=== PATIENT | male | born 1975 | race Caucasian/White ===

== ENCOUNTER 2017-02-03 09:24 | Emergency (ER) | payer OTHER ==
[~2017-02-03] VITALS: Ht 177.8 cm; Wt 92.6 kg
[2017-02-03 09:26] VITALS: TEMP 36.7; Ht 177.8 cm; Wt 92.6 kg
[2017-02-03] MEDS ORDERED: SODIUM CHLORIDE 0.9% 1000ML 1,000 ML IV STA (09:42)
[2017-02-03] MEDS ORDERED: SODIUM CHLORIDE 0.9% 1000ML 1,000 ML IV ONE (09:42)
[2017-02-03] MEDS ORDERED: ALPR1TAB3 PO (09:46)
[2017-02-03] MEDS ORDERED: SRQ/100 PO (09:46)
[2017-02-03] MEDS ORDERED: BUPR-79 PO (09:46)
[2017-02-03] MEDS ORDERED: QUET1TAB90 PO (09:46)
--- NOTE | 2017-02-03 09:48 | EMERGENCY ROOM VISIT NOTE ---
History Report prepared by Nieves: Barbie Tran Under the Supervision of: Dr. Lawrence Dee M.D. First contact with patient: 09:31 Chief Complaint: SEIZURE Stated Complaint: POSS. SEIZURE Nursing Triage Summary: Pt was at work when he had a syncopal event. Coworkers witnessed event and said pt passed out and had seizure like activity. Pt does not remember event, no loss of bladder or bowel control, no hx of seizures. Pt presents feeling dizzy and lightheaded. History of Present Illness The patient is a 41 year old male who presents to the Emergency Room with complaints of sudden seizure like activity that occurred 25 minutes prior to arrival. The patient states that he was at work when he suddenly fell to the ground and became unconscious. He states that he was told that he suddenly dropped and experienced seizure like activity. The patient denies any seizure history and reports feeling fine this morning. 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 The patient states that he felt fine this morning. He reports dizziness with his symptoms and states that he was confused after the episode. The patient denies any head trauma or other injury. The patient states that two weeks ago he started on Xanax, Seroquel and Wellbutrin for his combat related PTSD. He reports medication compliance and denies taking any extra medications. The patient states that he did sleep rough last evening. He states that he is a smoker and drank approximately 4 beers last evening. The patient denies any recreational drug use. He denies any family history of seizures. The patient denies any thoughts of self-harm. He denies any headache, tongue bite, fever, chest pain, shortness of breath, abdominal pain, melena, hematochezia, or urinary or bowel incontinence. Source of History: patient Onset: 25 minutes prior to arrival Position: other (global) Quality: other (seizure like activity) Timing: other (sudden) Associated Symptoms: No fevers, No headache, No chest pain, No SOB, No abdominal pain, No melena, No hematochezia, No urinary symptoms Note: Associated Symptoms: dizziness, confusion Review of Systems See HPI for pertinent positives & negatives. A total of 10 systems reviewed and were otherwise negative. Past Medical & Surgical Medical Problems: (1) PTSD (post-traumatic stress disorder) Old medical records were reviewed. Nurse's notes were reviewed and I agree with. Social History Smoking Status: Current Every Day Smoker Alcohol Use: occasionally Drug Use: none Current/Historical Medications Scheduled Alprazolam (Xanax), 1 MG PO TID Bupropion (Wellbutrin Sr), 150 MG PO BID Prazosin Hcl (Prazosin), 4 MG PO HS Quetiapine Fumarate (Seroquel), 100 MG PO DIRECTED Quetiapine Fumarate (Seroquel), 600 MG PO QPM Allergies Coded Allergies: No Known Allergies (Unverified , 02/03/17) Physical Exam Vital Signs Date Time Temp Pulse Resp B/P (MAP) Pulse Ox O2 Delivery O2 Flow Rate FiO2 02/03/17 12:14 89 16 143/84 98 02/03/17 11:27 80 16 146/86 98 02/03/17 10:13 18 146/86 96 Room Air 02/03/17 09:26 36.7 99 18 138/88 95 Room Air Physical Exam General: Well developed well nourished non-ill appearing young male, in no acute distress, breathing comfortably on room air. Normal speech. [place] 15. HEENT: Normal cephalic atraumatic. Pupils are equal round and reactive to light. Extraocular movements are intact. Oropharynx is pink with moist mucous membranes. No swelling of the mouth lips or tongue. Neck: Supple with a midline trachea. No meningeal signs or stiffness, no JVD or bruits. No Stridor. Chest: Clear to auscultation bilaterally. No wheezes or rhonchi. No increased work of breathing. Heart: regular rate and rhythm. Abdomen: Soft nontender, nondistended without rebound guarding or rigidity. Extremities: No cyanosis clubbing or edema. No calf tenderness or assymetry Spine/Back. Non tender to palpation. No CVA tenderness Skin: Good turgor without rashes. Neurologic exam: Cranial nerves two through 12 are intact. Motor and sensation are intact and symmetrical throughout. Finger to nose intact. Medical Decision & Procedures ER Provider Diagnostic Interpretation: Radiology results as stated below per my review and radiologist interpretation: CT HEAD WITHOUT CONTRAST (CT) CLINICAL HISTORY: Seizure versus syncope. Patient fell from ladder. COMPARISON STUDY: No previous studies for comparison. TECHNIQUE: Axial CT of the brain is performed from the vertex to the skull base. IV contrast was not administered for this examination. CT DOSE: 684.17 mGycm FINDINGS: No intra or extra-axial mass lesions are visualized. There is no CT evidence of acute cortical infarction. There is no evidence of midline shift. There is no acute hemorrhage. No calvarial fractures are visualized. There are minimal white matter hypodensities likely on a small vessel basis. There is no evidence of pathologic ventricular dilatation. There is no evidence of acute sinusitis IMPRESSION: No acute intracranial findings Electronically signed by: Gurdeep Valero M.D. 02/03/2017 10:09 AM Dictated Date/Time: 02/03/2017 10:07 AM CHEST ONE VIEW PORTABLE HISTORY: Atypical CHEST PAIN COMPARISON: None. FINDINGS: The lungs are clear. Cardiac silhouette is normal in size. No pleural effusions. No pneumothorax. IMPRESSION: No acute process. Electronically signed by: Pete Macias M.D. 02/03/2017 10:01 AM Dictated Date/Time: 02/03/2017 10:00 AM Laboratory Results 02/03/17 09:50 Red Blood Count 4.99, Mean Corpuscular Volume 87.2, Mean Corpuscular Hemoglobin 30.5, Mean Corpuscular Hemoglobin Concent 34.9, Mean Platelet Volume 9.8, Neutrophils (%) (Auto) 59.0, Lymphocytes (%) (Auto) 27.0, Monocytes (%) (Auto) 10.2, Eosinophils (%) (Auto) 2.8, Basophils (%) (Auto) 0.7, Neutrophils # (Auto ) 4.07, Lymphocytes # (Auto) 1.86, Monocytes # (Auto) 0.70, Eosinophils # (Auto ) 0.19, Basophils # (Auto) 0.05 02/03/17 09:50 Test 02/03/17 09:50 02/03/17 09:55 White Blood Count 6.89 K/uL (4.8-10.8) Red Blood Count 4.99 M/uL (4.7-6.1) Hemoglobin 15.2 g/dL (14.0-18.0) Hematocrit 43.5 % (42-52) Mean Corpuscular Volume 87.2 fL (80-100) Mean Corpuscular Hemoglobin 30.5 pg (25-34) Mean Corpuscular Hemoglobin Concent 34.9 g/dl (32-36) Platelet Count 235 K/uL (130-400) Mean Platelet Volume 9.8 fL (7.4-10.4) Neutrophils (%) (Auto) 59.0 % Lymphocytes (%) (Auto) 27.0 % Monocytes (%) (Auto) 10.2 % Eosinophils (%) (Auto) 2.8 % Basophils (%) (Auto) 0.7 % Neutrophils # (Auto) 4.07 K/uL (1.4-6.5) Lymphocytes # (Auto) 1.86 K/uL (1.2-3.4) Monocytes # (Auto) 0.70 K/uL (0.11-0.59) Eosinophils # (Auto) 0.19 K/uL (0-0.5) Basophils # (Auto) 0.05 K/uL (0-0.2) RDW Standard Deviation 43.9 fL (36.4-46.3) RDW Coefficient of Variation 13.7 % (11.5-14.5) Immature Granulocyte % (Auto) 0.3 % Immature Granulocyte # (Auto) 0.02 K/uL (0.00-0.02) Anion Gap 9.0 mmol/L (3-11) Est Creatinine Clear Calc Drug Dose 87.2 ml/min Estimated GFR () 79.7 Estimated GFR (Non- 68.7 BUN/Creatinine Ratio 9.4 (10-20) Calcium Level 8.4 mg/dl (8.5-10.1) Total Bilirubin 0.4 mg/dl (0.2-1) Direct Bilirubin 0.1 mg/dl (0-0.2) Aspartate Amino Transf (AST/SGOT) 40 U/L (15-37) Alanine Aminotransferase (ALT/SGPT) 34 U/L (12-78) Alkaline Phosphatase 81 U/L (45-117) Total Creatine Kinase 667 U/L (39-308) Creatine Kinase MB 5.7 ng/ml (0.5-3.6) Creatine Kinase MB Ratio 0.9 (0-3.0) Total Protein 7.3 gm/dl (6.4-8.2) Albumin 3.9 gm/dl (3.4-5.0) Lipase 77 U/L (73-393) Bedside Troponin I < 0.030 ng/ml (0-0.045) Laboratory studies as stated above per my review. Medications Administered Medications (Trade) Dose Ordered Sig/Lluvia Route Start Time Stop Time Status Last Admin Dose Admin Sodium Chloride 1,000 ml @ 999 mls/hr Q1H1M STAT IV 02/03/17 09:42 02/03/17 10:42 DC 02/03/17 10:49 999 MLS/HR Sodium Chloride 1,000 ml @ 200 mls/hr Q5H ONCE IV 02/03/17 09:42 02/03/17 12:27 DC 02/03/17 09:42 200 MLS/HR ECG Indication: syncope Rate (beats per minute): 96 Rhythm: normal sinus Findings: no acute ischemic change, no ectopy, other (normal intervals, no prolongation of QT interval) Comparison ECG Date: no prior available ED Course 0934: Past medical records reviewed. The patient was evaluated in room B10, and a complete history and physical examination were performed. 0942: Ordered Sodium Chloride 1000 ml @ 200 mls/hr IV, Sodium Chloride 1000 ml @ 999 mls/hr IV. 1017: I reevaluated the patient and he is feeling fine and resting comfortably. 1137: I reevaluated the patient and he is doing well. He states that he does not have a license because it was suspended 5 years ago, and states that he does not own a car. 1204: I reevaluated the patient and he is resting comfortably. I discussed all the exam findings with him and I discussed the treatment plan. He verbalized complete understanding and agreement. He is ready to go home. Medical Decision Differentials include, but are not limited to; seizure, syncope, arrhythmia, electrolyte or metabolic abnormality, trauma. Blood pressure Screening: Patient was found to have normal blood pressure on screening and does not require follow-up. Medication Reconciliation: I attest that I have personally reviewed the patient' s current medication list. This patient comes in as described above. He was placed in room B 10. Seizure precautions were applied. He had a syncopal episode versus a seizure today. He had no symptoms prior and just fell. There are no witnesses here. He said this happened about half hour ago or so and looks well he is not postictal at present. He did not bite his tongue and he was not incontinent. EKG was obtained and multiple blood testing was obtained. He also had a CAT scan of his head and chest x-ray he was hydrated with IV normal saline and seizure precautions were applied while he was in the ER. His EKG does not suggest acute coronary syndrome or arrhythmia. His QT interval is not significantly prolonged which would go against or sides. He is on some to some new medications tonight these could be playing a role as well. CAT scan of his head was unremarkable and he has a normal neurologic exam and no further seizure -like activity while he was here. He had no symptoms to suggest arrhythmia while he was here. He has no acute electrolyte or metabolic abnormalities. I have reviewed his medications with her ED pharmacist. She felt that these medications could likely cause his seizures. Especially the Wellbutrin. In light of this, we will have him stop the Wellbutrin and also decrease his Seroquel from 600 mg at 300 mg at night. I talked to him about driving. 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 He lives with his girlfriend who watch him for further seizures. He should follow-up with his doctor call them tomorrow to get rechecked he may need to be restarted on some different psychiatric medications as well. He is not suicidal or homicidal. He is to avoid any activities such as swimming or climbing and in particular at work on a ladder until his doctor clears him and ensures that he has no other seizures. The patient was happy with plan and will be discharged to home. Impression Primary Impression: Seizure Scribe Attestation The scribe's documentation has been prepared under my direction and personally reviewed by me in its entirety. I confirm that the note above accurately reflects all work, treatment, procedures, and medical decision making performed by me. Departure Information Dispostion Home / Self-Care Referrals No Doctor, Assigned (PCP) Forms HOME CARE DOCUMENTATION FORM, IMPORTANT VISIT INFORMATION Patient Instructions My [facility] Additional Instructions Rest. Do not do any activities where uo could have a seizure Do not climb ladders or operate heavy machinery Stop the Wellbutrin Decrease the Seraquil from 600 mg at bedtime to 300 mg Return if: Worsening of symptoms, chest pain, further episodes of seizure or passing out, any new problems or concerns. Follow-up with your doctor this week for recheck
--- NOTE | 2017-02-03 10:02 | DIAGNOSTIC IMAGING REPORT ---
CHEST ONE VIEW PORTABLE HISTORY: Atypical CHEST PAIN COMPARISON: None. FINDINGS: The lungs are clear. Cardiac silhouette is normal in size. No pleural effusions. No pneumothorax. IMPRESSION: No acute process. Electronically signed by: Pete Macias M.D. 02/03/2017 10:01 AM Dictated Date/Time: 02/03/2017 10:00 AM
[2017-02-03 10:05] LABS: BASO % 0.7 %; BASO ABS # 0.05 K/uL (0-0.2); COMPLETE YES; EOS % 2.8 %; HEMATOCRIT 43.5 % (42-52); IG% 0.3 %; LYMPH ABS # 1.86 K/uL (1.2-3.4); MEAN CELL VOLUME 87.2 fL (80-100); MEAN CORPUSCULAR HEMOGLOBIN 30.5 pg (25-34); MEAN CORPUSCULAR HGB CONC 34.9 g/dl (32-36); MEAN PLATELET VOLUME 9.8 fL (7.4-10.4); MONO % 10.2 %; PLATELET COUNT 235 K/uL (130-400); RED BLOOD COUNT 4.99 M/uL (4.7-6.1); WHITE BLOOD COUNT 6.89 K/uL (4.8-10.8)
--- NOTE | 2017-02-03 10:11 | DIAGNOSTIC IMAGING REPORT ---
CT HEAD WITHOUT CONTRAST (CT) CLINICAL HISTORY: Seizure versus syncope. Patient fell from ladder. COMPARISON STUDY: No previous studies for comparison. TECHNIQUE: Axial CT of the brain is performed from the vertex to the skull base. IV contrast was not administered for this examination. CT DOSE: 684.17 mGycm FINDINGS: No intra or extra-axial mass lesions are visualized. There is no CT evidence of acute cortical infarction. There is no evidence of midline shift. There is no acute hemorrhage. No calvarial fractures are visualized. There are minimal white matter hypodensities likely on a small vessel basis. There is no evidence of pathologic ventricular dilatation. There is no evidence of acute sinusitis IMPRESSION: No acute intracranial findings Electronically signed by: Gurdeep Valero M.D. 02/03/2017 10:09 AM Dictated Date/Time: 02/03/2017 10:07 AM
[2017-02-03 10:26] LABS: CALCIUM 8.4 mg/dl (8.5-10.1)
[2017-02-03 10:27] LABS: BUN/CREATININE RATIO 9.4 (10-20); CREATININE 1.3 mg/dl (0.60-1.40); POTASSIUM 3.8 mmol/L (3.5-5.1)
[2017-02-03 10:37] LABS: CKMB/CK RATIO 0.9 (0-3.0)
[2017-02-03] MEDS ORDERED: PRAZ2CAP3 PO (11:32)
[2017-02-03 12:14] VITALS: BP 143/84; PULSE 89; O2SAT 98
== END 2017-02-03 12:15 | disposition home or self-care (01) ==
LOC: C.EDB 09:25
DX: R56.9 Unspecified convulsions (principal); F43.10 Post-traumatic stress disorder, unspecified; Z79.899 Other long term (current) drug therapy; F17.210 Nicotine dependence, cigarettes, uncomplicated